=== PATIENT | female | born 1955 | race Caucasian/White ===

== ENCOUNTER → 2017-02-24 | Outpatient (CLI) | payer BC ==
--- NOTE | 2017-02-24 11:03 | RADRPT ---
PROCEDURE: XR Knee. CLINICAL INDICATION: Pain. TECHNIQUE: AP, lateral and oblique views of the left knee were obtained. The images reviewed on a PACS workstation. COMPARISON: Right knee series December 13, 2013 FINDINGS: The bones appear intact, with no evidence of fracture, erosion, demineralization, or dislocation. There is tricompartmental, moderate to severe osteoarthritis with joint space narrowing and osteophy te formation. No joint effusion or soft tissue swelling noted. IMPRESSION: No acute fracture, dislocation or joint effusion. Moderate, to severe, tricompartmental osteoarthri tis. RPTAT: QQ .Zuleyma Stubbs MD, MD Date Time Electronically viewed and signed by .Zuleyma Stubbs MD, MD on 02/24/2017 11:02 .F/
== END | disposition home or self-care (01) ==
LOC: HKI 08:51
PROVIDERS: ATTEND Orthopaedic Surgery
DX: M17.0 Bilateral primary osteoarthritis of knee (principal)
CPT/HCPCS: 20610; 73564; G0463; J1030